=== PATIENT | female | born 1950 | race Caucasian/White ===

== ENCOUNTER → 2017-12-23 | Outpatient (CLI) | payer MEDICARE, OTHER | LOC: MAMMO 14:27 | DX: Z12.31 Encounter for screening mammogram for malignant neoplasm of breast (principal) ==

== ENCOUNTER → 2017-12-23 | Outpatient (CLI) | payer MEDICARE, OTHER | LOC: MAMMO 14:25 | DX: Z13.820 Encounter for screening for osteoporosis (principal); M81.0 Age-related osteoporosis without current pathological fracture ==

== ENCOUNTER → 2019-02-16 | Outpatient (CLI) | payer MEDICARE, OTHER | LOC: MAMMO 08:58 | DX: Z12.31 Encounter for screening mammogram for malignant neoplasm of breast (principal) ==

== ENCOUNTER → 2020-02-21 | Outpatient (CLI) | payer MEDICARE, OTHER | LOC: MAMMO 12:27 | DX: Z13.820 Encounter for screening for osteoporosis (principal); Z12.31 Encounter for screening mammogram for malignant neoplasm of breast; M81.0 Age-related osteoporosis without current pathological fracture ==

== ENCOUNTER → 2020-02-21 | Outpatient (CLI) | payer MEDICARE, OTHER | LOC: MAMMO 12:26 | DX: Z12.31 Encounter for screening mammogram for malignant neoplasm of breast (principal) ==

== ENCOUNTER → 2021-03-05 | Outpatient (CLI) | payer MEDICARE, OTHER | LOC: MAMMO 12:59 | DX: Z12.31 Encounter for screening mammogram for malignant neoplasm of breast (principal) ==

== ENCOUNTER → 2022-03-12 | Outpatient (CLI) | payer MEDICARE, OTHER | LOC: MAMMO 14:19 | DX: Z12.31 Encounter for screening mammogram for malignant neoplasm of breast (principal) ==

== ENCOUNTER → 2022-03-12 | Outpatient (CLI) | payer MEDICARE, OTHER | LOC: MAMMO 14:23 | DX: M81.0 Age-related osteoporosis without current pathological fracture (principal) ==

== ENCOUNTER → 2024-06-06 | Outpatient (CLI) | payer MEDICARE | LOC: RAD 14:08 → MAMMO 14:30 | DX: Z13.820 Encounter for screening for osteoporosis (principal) ==

== ENCOUNTER → 2024-06-06 | Outpatient (CLI) | payer MEDICARE | LOC: MAMMO 14:00 | DX: Z12.31 Encounter for screening mammogram for malignant neoplasm of breast (principal) ==